=== PATIENT | male | born 1995 | race Caucasian/White ===

== ENCOUNTER 2016-08-20 16:34 | Emergency (ER) | payer OTHER ==
[2016-08-20] MEDS ORDERED: TYLENOL325 M2 PO (16:44)
[2016-08-20] MEDS ORDERED: AMOXICILLIN500 M2 PO (17:42)
[2016-08-20] MEDS ORDERED: IBUPROFEN600 M1 PO (17:42)
== END 2016-08-20 18:25 ==
LOC: EDMED 16:34
DX: K02.9 Dental caries, unspecified (principal); F17.200 Nicotine dependence, unspecified, uncomplicated